=== PATIENT | male | born 1960 | race Caucasian/White ===

== ENCOUNTER 2021-07-11 17:17 | Emergency (ER) | payer OTHER ==
[~2021-07-11] VITALS: Ht 175.3 cm; Wt 74.8 kg
[2021-07-11 18:11] LABS: URINE BILIRUBIN NEGATIVE (Negative); URINE BLOOD 3+ (Negative); URINE CLARITY SL CLOUDY; URINE COLOR YELLOW; URINE GLUCOSE-RANDOM* NEGATIVE (Negative); URINE KETONES NEGATIVE (Negative); URINE LEUKOCYTES-REFLEX NEGATIVE (Negative); URINE NITRITE-REFLEX NEGATIVE (Negative); URINE PROTEIN (DIPSTICK) TRACE (Negative); URINE SPECIFIC GRAVITY 1.025 (1.005-1.035)
[2021-07-11 18:31] LABS: ABSOLUTE NEUTROPHILS 5.5 thou/uL (1.4-8.2); BASOPHILS 0.9 % (0.0-2.0); EOSINOPHILS 1.2 % (0.0-3.0); HEMATOCRIT 38.3 % (42.0-52.0); HEMOGLOBIN 13.6 gm/dL (14.0-18.0); LYMPHOCYTES 18.7 % (24.0-44.0); MCH 33.3 pg (26.0-34.0); MCHC 35.5 g/dL (28.0-37.0); MCV 93.7 fL (80.0-100.0); MONOCYTES 16.4 % (1.0-8.0); PLATELET COUNT 438 thou/uL (150-400); POLYS 62.8 % (36.0-66.0); RBC 4.09 mil/uL (4.50-6.00); RDW 12.6 % (10.5-14.5); WBC 8.8 thou/uL (4.0-11.0)
[2021-07-11 18:47] LABS: ALBUMIN 3.1 g/dL (3.4-5.0); CALCIUM 8.7 mg/dL (8.5-10.1); CREATININE 1.1 mg/dL (0.7-1.3); TOTAL BILIRUBIN 0.8 mg/dL (0.2-1.0); TOTAL PROTEIN 7.4 g/dL (6.4-8.2)
[2021-07-11 18:48] LABS: BACTERIA-REFLEX 1-9 Few /HPF (None Seen); CASTS None Seen /LPF (None Seen); CRYSTALS None Seen /LPF (None Seen); MUCUS 4-6 Moderate strn/LPF (None Seen); SQUAMOUS 0-3 Few /LPF (0-3); URINE RBC >20 Many /HPF (NONE SEEN); URINE WBC-REFLEX 0-5 Rare /HPF (0-5)
[2021-07-11 18:51] LABS: POTASSIUM 2.8 mmol/L (3.5-5.1)
[2021-07-11] MEDS ORDERED: NORCO5 PO ×2 (19:10→19:14)
[2021-07-11] MEDS ORDERED: ZOFRAN ODT4 MG PO (19:10)
[2021-07-11] MEDS ORDERED: FLOMAX0.4 MG PO (19:10)
[2021-07-11] MEDS ORDERED: KLOR-CON 1010 MEQ PO (19:12)
[2021-07-11 20:03] VITALS: BP 148/72
== END 2021-07-11 20:04 | disposition home or self-care (01) ==
LOC: ER 17:17
PROVIDERS: Emergency Medicine; Physician Assistant
DX: N13.2 Hydronephrosis with renal and ureteral calculous obstruction (principal); E87.6 Hypokalemia; G62.9 Polyneuropathy, unspecified; Z98.890 Other specified postprocedural states; Z87.442 Personal history of urinary calculi; Z86.16 Personal history of COVID-19

== ENCOUNTER 2021-07-29 12:32 | Emergency (ER) | payer OTHER ==
[~2021-07-29] VITALS: Ht 175.3 cm; Wt 77.1 kg
[~2021-07-29 12:32] MED LIST: FLOMAX0.4 MG PO; KLOR-CON 1010 MEQ PO; NORCO5 PO; ZOFRAN ODT4 MG PO
[2021-07-29 13:02] LABS: URINE BILIRUBIN NEGATIVE (Negative); URINE BLOOD NEGATIVE (Negative); URINE CLARITY CLEAR; URINE COLOR YELLOW; URINE GLUCOSE-RANDOM* NEGATIVE (Negative); URINE KETONES NEGATIVE (Negative); URINE LEUKOCYTES-REFLEX NEGATIVE (Negative); URINE NITRITE-REFLEX NEGATIVE (Negative); URINE PROTEIN (DIPSTICK) NEGATIVE (Negative); URINE SPECIFIC GRAVITY 1.015 (1.005-1.035); URINE UROBILINOGEN 0.2 E.U./dl (0.2-1.0)
[2021-07-29 13:21] LABS: HEMATOCRIT 38.2 % (42.0-52.0); HEMOGLOBIN 13.1 gm/dL (14.0-18.0); MCH 32.2 pg (26.0-34.0); MCHC 34.4 g/dL (28.0-37.0); MCV 93.8 fL (80.0-100.0); PLATELET COUNT 214 thou/uL (150-400); RBC 4.07 mil/uL (4.50-6.00); RDW 13.4 % (10.5-14.5); WBC 5.8 thou/uL (4.0-11.0)
[2021-07-29 13:24] LABS: CALCIUM 8.8 mg/dL (8.5-10.1); CREATININE 0.7 mg/dL (0.7-1.3); POTASSIUM 4.5 mmol/L (3.5-5.1)
[2021-07-29 14:17] LABS: ABSOLUTE NEUTROPHILS 3.8 thou/uL (1.4-8.2); ANISOCYTOSIS 1+
[2021-07-29] MEDS ORDERED: NAPROSYN500 MG PO (14:35)
[2021-07-29 16:02] VITALS: BP 160/105
--- NOTE | 2021-07-29 16:27 | EKG ---
[address] [place] [address] ELECTROCARDIOGRAM REPORT Name: JULIETTEMARCELLE [id number] Admission: 07/29/21 Attend Phys: Discharge: 07/29/21 Date of : 62 Report #: [id number] [facility] ED Test Date: 2021-07-29 Test Time: 12:50:46 Pat Name: MARCELLE SEGOVIA Department: Room: Gender: Order Administrator: meghana : 1960 Requested By: Marcos Roca Order Number: [id number] MD: Mitch Garcia Measurements Intervals [place] Rate: 71 P: -6 VA: 144 QRS: -29 QRSD: 84 T: 6 QT: 379 QTc: 412 Interpretive Statements Sinus rhythm Borderline left axis deviation Borderline T abnormalities, anterior leads No previous ECG available for comparison Electronically Signed On 07-29-2021 16:27:15 CDT by Mitch Garcia [email or web address] <ELECTRONICALLY SIGNED> By: Mitch Garcia MD, [facility] 07/29/21 1627 1250 1250 Mitch Garcia MD, FACC /EPI
== END 2021-07-29 16:03 | disposition home or self-care (01) ==
LOC: ER 12:32
PROVIDERS: Emergency Medicine; Nurse Practitioner
DX: R10.84 Generalized abdominal pain (principal); R07.89 Other chest pain; G62.9 Polyneuropathy, unspecified